=== PATIENT | male | born 1990 | race Caucasian/White ===

== ENCOUNTER 2022-01-11 10:41 | Emergency (ER) | payer BC, SELFPAY ==
--- NOTE | ~2022-01-11 | XR_ITS ---
EXAMINATION: XR cervical spine 4-5V EXAM DATE: 01/11/2022 11:19 INDICATION: left side neck pain/no trauma/after physical activity . TECHNIQUE: Cervical spine frontal, lateral, lateral swimmers, and open-mouth odontoid projections. There is no prior study for comparison. FINDINGS: There is no evidence of acute cervical fracture. The odontoid process is intact. Pre-dens space is normal. Prevertebral soft tissue is normal. There are no soft tissue abnormalities identi fied. Vertebral body and disc heights are well-maintained. The vertebral bodies are aligned. Mil d cervical facet arthropathy. IMPRESSION: Mild cervical facet arthropathy. Reviewed, dictated and finalized at location B. [employer]
[2022-01-11 10:53] VITALS: BP 109/70; PULSE 67; RESP 18; TEMP 37; O2SAT 100
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
== END 2022-01-11 11:32 | disposition home or self-care (01) ==
PROVIDERS: Emergency Provider Nurse Practitioner Family
DX: S16.1XXA Strain of muscle, fascia and tendon at neck level, initial encounter (principal); X58.XXXA Exposure to other specified factors, initial encounter; M47.9 Spondylosis, unspecified
CPT/HCPCS: 72050; 99213; G0463